=== PATIENT | male | born 1985 | race African-American/Black ===

== ENCOUNTER 2020-01-20 17:22 | Emergency (ER) | payer OTHER ==
[~2020-01-20] VITALS: Ht 180.3 cm; Wt 74.8 kg
[2020-01-20 17:29] VITALS: BP 110/70
[2020-01-20] MEDS ORDERED: TIZANIDINE4 MG/1 TA1 PO (17:56)
[2020-01-20] MEDS ORDERED: IBUPROFEN 600600 M1 PO (17:56)
[2020-01-20] MEDS ORDERED: PREDNISONE 20 M20 MG PO (17:56)
== END 2020-01-20 18:25 | disposition home or self-care (01) ==
LOC: ER 17:22
DX: M54.31 Sciatica, right side (principal); Z90.49 Acquired absence of other specified parts of digestive tract